=== PATIENT | female | born 1955 | race Caucasian/White ===

== ENCOUNTER 2020-07-18 10:34 | Day surgery (SDC) | payer BC ==
[2020-07-14 13:54] LABS: Basophils # (auto) 0.1 10 ^3/uL (0-0.2); Basophils % (auto) 0.7 % (0.0-2.0); Eosinophils # (auto) 0.1 10 ^3/uL (0-0.8); Eosinophils % (auto) 1.5 % (0.0-7.0); Hematocrit 41.3 % (36.0-46.0); Hemoglobin 13.6 g/dL (12.2-16.2); Lymphocytes # (auto) 2.3 10 ^3/uL (0.4-5.4); Lymphocytes % (auto) 29.8 % (10.0-50.0); Mean Corpuscular Hemoglobin 29.6 pg (28.0-32.0); Mean Corpuscular Hgb Conc. 32.9 g/dL (32.0-36.0); Mean Corpuscular Volume 89.9 fL (80.0-100.0); Monocytes # (auto) 0.6 10 ^3/uL (0-1.3); Monocytes % (auto) 7.5 % (0.0-12.0); Neutrophils # (auto) 4.6 10 ^3/uL (1.6-8.6); Neutrophils % (auto) 60.5 % (37.0-80.0); Nucleated Red Blood Cells % 0.2 %; Platelet Count (auto) 205 10^3/uL (140-450); Red Blood Cells 4.59 10^6/uL (4.0-5.20); Red Cell Distribution Width 13.1 % (11.8-14.3); Urine Bacteria NONE SEEN /hpf (None Seen); Urine Blood Negative /uL (Negative); Urine Mucus FEW (None Seen); Urine Specific Gravity 1.031 (1.001-1.035); Urine WBC 1 /hpf (0 - 5); White Blood Cell 7.6 10^3/uL (4.4-10.8)
[2020-07-14 14:08] LABS: INR 0.99 (0.9-1.15); Partial Thromboplastin Time 25.6 sec (23.0-31.2)
[2020-07-14 14:09] LABS: BUN/Creatinine Ratio 28.6; Calcium 9.1 mg/dL (8.5-10.1); Potassium 3.5 mmol/L (3.5-5.1)
[2020-07-14 14:12] LABS: Bilirubin, Total 0.4 mg/dL (0.2-1.0); Total Protein 7.2 g/dL (6.4-8.2)
[~2020-07-18] VITALS: Ht 152.4 cm; Wt 71.7 kg
[~2020-07-18 10:34] MED LIST: CHOL500040 PO; GABA300C10 PO; GLIP5TAB12 PO; INSLANTI SC; LEVO50TA7 PO; LISI-648 PO; METF-372 PO; NAPR220C PO; OMEP20TA PO; PARO10TA93 PO; SECU1INJ4 SC
[2020-07-18] MEDS ORDERED: PROPOFOL 10 MG/ML 20 ML IV ONE (11:06)
[2020-07-18] MEDS ORDERED: MIDAZOLAM HCL 1MG/1ML-2 ML VIAL ONE (11:06)
[2020-07-18] MEDS ORDERED: SODIUM CHLORIDE LOCK 10 ML ONE (11:06)
[2020-07-18] MEDS ORDERED: ONDANSETRON HCL 4 MG/2 ML VIAL ONE (11:06)
[2020-07-18] MEDS ORDERED: fentaNYL CITRATE 100 MCG/2 ML VL ONE (11:06)
[2020-07-18] MEDS ORDERED: METOCLOPRAMIDE HCL 5MG/ml INJ 2ml VIAL IV PRN (11:30)
[2020-07-18] MEDS ORDERED: HYDROmorphone HCL 2 MG/ML VL IV PRN (11:30)
[2020-07-18] MEDS ORDERED: fentaNYL CITRATE 100 MCG/2 ML VL IV PRN (11:30)
[2020-07-18] MEDS ORDERED: MORPHINE SULFATE 4 MG/ML SYR/VIAL IV PRN (11:30)
[2020-07-18] MEDS ORDERED: ACCU-CHEK COMFORT CURVE STRIP VI ONE (11:30)
[2020-07-18 13:03] VITALS: BP 133/87
== END 2020-07-18 13:52 | disposition home or self-care (01) ==
LOC: GI 10:34
PROVIDERS: ATTEND Internal Medicine Gastroenterology
DX: Z12.11 Encounter for screening for malignant neoplasm of colon (principal); K63.89 Other specified diseases of intestine; F32.9 Major depressive disorder, single episode, unspecified; F41.9 Anxiety disorder, unspecified; E66.9 Obesity, unspecified; E03.9 Hypothyroidism, unspecified; E11.40 Type 2 diabetes mellitus with diabetic neuropathy, unspecified; I10 Essential (primary) hypertension; Z90.89 Acquired absence of other organs; Z68.30 Body mass index [BMI] 30.0-30.9, adult; Z20.828 Contact with and (suspected) exposure to other viral communicable diseases; Z98.890 Other specified postprocedural states
CPT/HCPCS: 36415; 45378; 80053; 81001; 82962; 85025; 85610; 85730; J2250; J2405; J2704; J3010; U0003; 99152; 99153

== ENCOUNTER → 2023-09-13 | Outpatient (CLI) | payer BC ==
[~2023-09-13] MED LIST changes: +GABA-1250 PO; -GABA300C10 PO; -LISI-648 PO; +LISI10TA34 PO
[2023-09-13 07:56] LABS: Basophils # (auto) 0 10 ^3/uL (0-0.2); Basophils % (auto) 0.5 % (0.0-2.0); Eosinophils # (auto) 0.1 10 ^3/uL (0-0.8); Eosinophils % (auto) 1.2 % (0.0-7.0); Hematocrit 40.7 % (36.0-46.0); Hemoglobin 13.5 g/dL (12.2-16.2); Lymphocytes # (auto) 2.1 10 ^3/uL (0.4-5.4); Lymphocytes % (auto) 33.8 % (10.0-50.0); Mean Corpuscular Hemoglobin 30.4 pg (28.0-32.0); Mean Corpuscular Hgb Conc. 33.2 g/dL (32.0-36.0); Mean Corpuscular Volume 91.5 fL (80.0-100.0); Monocytes # (auto) 0.6 10 ^3/uL (0-1.3); Monocytes % (auto) 9.8 % (0.0-12.0); Neutrophils # (auto) 3.4 10 ^3/uL (1.6-8.6); Neutrophils % (auto) 54.7 % (37.0-80.0); Nucleated Red Blood Cells % 0.1 %; Red Blood Cells 4.45 10^6/uL (4.0-5.20); Red Cell Distribution Width 12.8 % (11.8-14.3); White Blood Cell 6.2 10^3/uL (4.4-10.8)
[2023-09-13 08:32] LABS: Erythrocyte Sedimentation Rate 8 mm/hr (0-20)
[2023-09-13 08:33] LABS: Alanine Aminotransferase 30 U/L (7-40); Albumin 4.3 g/dL (3.2-4.8); Alkaline Phosphatase 72 U/L (46-116); Anion Gap 4 (5-15); Aspartate Aminotransferase 22 U/L (13-40); BUN/Creatinine Ratio 29.3 (10.0-20.0); Blood Urea Nitrogen 22 mg/dL (9-23); Calcium 9.6 mg/dL (8.5-10.1); Carbon Dioxide 31 mmol/L (20-30); Chloride 106 mmol/L (98-107); Glucose 121 mg/dL (74-106); Potassium 4.5 mmol/L (3.5-5.1); Sodium 141 mmol/L (136-145)
[2023-09-13 08:34] LABS: Bilirubin, Total 0.5 mg/dL (0.2-1.0); Total Protein 6.6 g/dL (5.7-8.2)
== END | disposition home or self-care (01) ==
LOC: LAB 07:41
PROVIDERS: ATTEND Internal Medicine
DX: E11.9 Type 2 diabetes mellitus without complications (principal); M12.80 Other specific arthropathies, not elsewhere classified, unspecified site
CPT/HCPCS: 36415; 80053; 83036; 85025; 85652

== ENCOUNTER → 2023-12-26 | Outpatient (CLI) | payer BC ==
[2023-12-26 10:00] LABS: Basophils # (auto) 0.1 10 ^3/uL (0-0.2); Basophils % (auto) 0.9 % (0.0-2.0); Eosinophils # (auto) 0.9 10 ^3/uL (0-0.8); Eosinophils % (auto) 10.9 % (0.0-7.0); Hemoglobin 13.2 g/dL (12.2-16.2); Lymphocytes # (auto) 2.1 10 ^3/uL (0.4-5.4); Lymphocytes % (auto) 25.2 % (10.0-50.0); Mean Corpuscular Hemoglobin 30.1 pg (28.0-32.0); Mean Corpuscular Hgb Conc. 33.1 g/dL (32.0-36.0); Mean Corpuscular Volume 90.8 fL (80.0-100.0); Monocytes # (auto) 0.6 10 ^3/uL (0-1.3); Monocytes % (auto) 7.5 % (0.0-12.0); Neutrophils # (auto) 4.7 10 ^3/uL (1.6-8.6); Neutrophils % (auto) 55.5 % (37.0-80.0); Red Cell Distribution Width 13.8 % (11.8-14.3); White Blood Cell 8.4 10^3/uL (4.4-10.8)
[2023-12-26 10:14] LABS: Urine Bacteria NONE SEEN /hpf (None Seen); Urine Blood Negative /uL (Negative); Urine Clarity Clear (Clear); Urine Color Yellow (Yellow); Urine Mucus FEW (None Seen); Urine Protein, UAD 1+ (Negative); Urine Specific Gravity 1.029 (1.001-1.035); Urine Urobilinogen Normal (Negative); Urine WBC 2 /hpf (0 - 5); Urine pH 5.5 (5.0-8.0)
[2023-12-26 10:25] LABS: Alanine Aminotransferase 29 U/L (7-40); Aspartate Aminotransferase 27 U/L (13-40); Cholesterol 195 mg/dL (< 200); Creatine Kinase IFCC 156 U/L (34-145); HDL Cholesterol 45 mg/dL (40-59); LDL Cholesterol 90 mg/dL (< 100); Triglycerides 297 mg/dL (< 150)
== END | disposition home or self-care (01) ==
LOC: LAB 09:39
PROVIDERS: ATTEND Internal Medicine
DX: E11.9 Type 2 diabetes mellitus without complications (principal); E03.9 Hypothyroidism, unspecified; E78.5 Hyperlipidemia, unspecified
CPT/HCPCS: 36415; 80061; 81001; 82550; 83036; 84439; 84450; 84460; 85025

== ENCOUNTER → 2024-04-10 | Outpatient (CLI) | payer BC ==
[~2024-04-10] MED LIST changes: -GLIP5TAB12 PO; +GLIP5TAB21 PO
[2024-04-10 12:00] LABS: Basophils # (auto) 0 10 ^3/uL (0-0.2); Basophils % (auto) 0.5 % (0.0-2.0); Eosinophils # (auto) 0.1 10 ^3/uL (0-0.8); Hematocrit 39.1 % (36.0-46.0); Hemoglobin 13.5 g/dL (12.2-16.2); Lymphocytes # (auto) 2.4 10 ^3/uL (0.4-5.4); Lymphocytes % (auto) 34.2 % (10.0-50.0); Mean Corpuscular Hemoglobin 31.4 pg (28.0-32.0); Mean Corpuscular Hgb Conc. 34.4 g/dL (32.0-36.0); Mean Corpuscular Volume 91.4 fL (80.0-100.0); Monocytes # (auto) 0.6 10 ^3/uL (0-1.3); Monocytes % (auto) 8.8 % (0.0-12.0); Neutrophils # (auto) 3.9 10 ^3/uL (1.6-8.6); Neutrophils % (auto) 55.5 % (37.0-80.0); Red Blood Cells 4.28 10^6/uL (4.0-5.20); Red Cell Distribution Width 12.9 % (11.8-14.3)
[2024-04-10 12:15] LABS: Alanine Aminotransferase 28 U/L (7-40); Albumin 4.4 g/dL (3.2-4.8); Alkaline Phosphatase 97 U/L (46-116); Anion Gap 5 (5-15); Aspartate Aminotransferase 20 U/L (13-40); BUN/Creatinine Ratio 33.3 (10.0-20.0); Bilirubin, Total 0.5 mg/dL (0.2-1.0); Blood Urea Nitrogen 23 mg/dL (9-23); CRP High Sensitivity 0.07 mg/dL (<1.0); Calcium 9.8 mg/dL (8.5-10.1); Carbon Dioxide 28 mmol/L (20-30); Chloride 107 mmol/L (98-107); Glucose 111 mg/dL (74-106); Potassium 4.1 mmol/L (3.5-5.1); Sodium 140 mmol/L (136-145); Total Protein 6.7 g/dL (5.7-8.2)
[2024-04-10 12:52] LABS: Erythrocyte Sedimentation Rate 9 mm/hr (0-20)
== END | disposition home or self-care (01) ==
LOC: LAB 11:23
PROVIDERS: ATTEND Internal Medicine
DX: I10 Essential (primary) hypertension (principal); E11.9 Type 2 diabetes mellitus without complications
CPT/HCPCS: 36415; 80053; 83036; 85025; 85652; 86141

== ENCOUNTER → 2024-09-19 | Outpatient (CLI) | payer BC ==
[2024-09-19 09:03] LABS: Urine Bacteria None Seen /hpf (None Seen)
[2024-09-19 09:21] LABS: Basophils # (auto) 0 10 ^3/uL (0-0.2); Basophils % (auto) 0.4 % (0.0-2.0); Eosinophils # (auto) 0.1 10 ^3/uL (0-0.8); Eosinophils % (auto) 0.7 % (0.0-7.0); Hematocrit 40.7 % (36.0-46.0); Hemoglobin 13.7 g/dL (12.2-16.2); Lymphocytes # (auto) 2.1 10 ^3/uL (0.4-5.4); Lymphocytes % (auto) 28.5 % (10.0-50.0); Mean Corpuscular Hemoglobin 30.3 pg (28.0-32.0); Mean Corpuscular Hgb Conc. 33.7 g/dL (32.0-36.0); Mean Corpuscular Volume 89.8 fL (80.0-100.0); Monocytes # (auto) 0.7 10 ^3/uL (0-1.3); Neutrophils # (auto) 4.5 10 ^3/uL (1.6-8.6); Neutrophils % (auto) 61.4 % (37.0-80.0); Nucleated Red Blood Cells % 0.1 %; Platelet Count (auto) 221 10^3/uL (140-450); Red Blood Cells 4.54 10^6/uL (4.0-5.20); Red Cell Distribution Width 13.3 % (11.8-14.3); White Blood Cell 7.3 10^3/uL (4.4-10.8)
[2024-09-19 09:40] LABS: Urine Blood Negative /uL (Negative); Urine Clarity Clear (Clear); Urine Color Yellow (Yellow); Urine Mucus FEW (None Seen); Urine Protein, UAD TRACE (Negative); Urine Specific Gravity 1.023 (1.001-1.035); Urine Urobilinogen Normal (Negative); Urine WBC 11 /hpf (0 - 5); Urine pH 5.5 (5.0-9.0)
[2024-09-19 09:53] LABS: Creatinine, Urine 102.17 mg/dL (30.0-125.0)
[2024-09-19 09:54] LABS: Alanine Aminotransferase 24 U/L (7-40); Albumin 4.3 g/dL (3.2-4.8); Alkaline Phosphatase 98 U/L (46-116); Anion Gap 8 (5-15); Aspartate Aminotransferase 15 U/L (13-40); BUN/Creatinine Ratio 28.6 (10.0-20.0); Blood Urea Nitrogen 20 mg/dL (9-23); Calcium 10.4 mg/dL (8.7-10.4); Carbon Dioxide 28 mmol/L (20-31); Chloride 107 mmol/L (98-107); Cholesterol 215 mg/dL (< 200); Glucose 76 mg/dL (74-106); HDL Cholesterol 45 mg/dL (40-59); LDL Cholesterol 104 mg/dL (< 100); Potassium 4.4 mmol/L (3.5-5.1); Sodium 143 mmol/L (136-145); Triglycerides 283 mg/dL (< 150)
[2024-09-19 09:55] LABS: Bilirubin, Total 0.4 mg/dL (0.2-1.0); Erythrocyte Sedimentation Rate 7 mm/hr (0-20); Total Protein 6.7 g/dL (5.7-8.2)
[2024-09-19 11:07] LABS: Free T4 (Free Thyroxine) 1.41 ng/dL (0.89-1.76)
== END | disposition home or self-care (01) ==
LOC: LAB 08:45
PROVIDERS: ATTEND Internal Medicine
DX: I10 Essential (primary) hypertension (principal); E11.9 Type 2 diabetes mellitus without complications; Z79.899 Other long term (current) drug therapy
CPT/HCPCS: 36415; 80053; 80061; 81001; 82043; 82306; 82570; 82607; 83036; 84439; 84443; 85025; 85652

== ENCOUNTER → 2025-08-02 | Outpatient (CLI) | payer BC ==
[2025-08-02 10:05] LABS: Hematocrit 38.3 % (36.0-46.0); Hemoglobin 13.2 g/dL (12.2-16.2); Mean Corpuscular Hemoglobin 30.5 pg (28.0-32.0); Mean Corpuscular Volume 88.2 fL (80.0-100.0); Nucleated Red Blood Cells % 0.1 %
[2025-08-02 10:08] LABS: Urine Protein, UAD 1+ (Negative)
[2025-08-02 10:30] LABS: Alanine Aminotransferase 25 U/L (7-40); Alkaline Phosphatase 85 U/L (46-116); Anion Gap 10 (5-15); BUN/Creatinine Ratio 27.6 (10.0-20.0); Blood Urea Nitrogen 21 mg/dL (9-23); Calcium 9.5 mg/dL (8.7-10.4); Carbon Dioxide 28 mmol/L (20-31); Chloride 103 mmol/L (98-107); Potassium 4.6 mmol/L (3.5-5.1); Sodium 141 mmol/L (136-145); Total Protein 6.9 g/dL (5.7-8.2)
[2025-08-02 10:31] LABS: Albumin 4.3 g/dL (3.2-4.8)
[2025-08-02 10:32] LABS: Bilirubin, Total 0.6 mg/dL (0.2-1.0)
[2025-08-02 10:37] LABS: Microalb/Creat Ratio, Urine 11.0
[2025-08-02 10:43] LABS: Cholesterol 223 mg/dL (< 200); Glucose 138 mg/dL (74-106); HDL Cholesterol 39 mg/dL (40-59); Triglycerides 365 mg/dL (< 150)
== END | disposition home or self-care (01) ==
LOC: LAB 09:30
PROVIDERS: ATTEND Internal Medicine
DX: I10 Essential (primary) hypertension (principal); E11.9 Type 2 diabetes mellitus without complications
CPT/HCPCS: 36415; 80053; 80061; 81001; 82043; 82570; 82607; 84443; 85025; 85652

== ENCOUNTER 2025-08-19 07:28 | Inpatient (IN) | payer BC ==
[2025-08-15 12:57] LABS: Hematocrit 39.4 % (36.0-46.0); Hemoglobin 13.3 g/dL (12.2-16.2); Mean Corpuscular Hemoglobin 30.0 pg (28.0-32.0); Mean Corpuscular Volume 88.5 fL (80.0-100.0); Nucleated Red Blood Cells % 0.0 %
[2025-08-15 13:03] LABS: Urine Protein, UAD Negative (Negative)
[2025-08-15 13:07] LABS: INR 1.02 (0.9-1.15); Partial Thromboplastin Time 26.8 SEC (24.5-34.5); Prothrombin Time 10.8 sec (9.3-11.8)
[2025-08-15 13:21] LABS: Alanine Aminotransferase 22 U/L (7-40); Albumin 4.6 g/dL (3.2-4.8); Alkaline Phosphatase 85 U/L (46-116); Anion Gap 11 (5-15); BUN/Creatinine Ratio 23.9 (10.0-20.0); Bilirubin, Total 0.6 mg/dL (0.2-1.0); Blood Urea Nitrogen 16 mg/dL (9-23); Calcium 9.7 mg/dL (8.7-10.4); Carbon Dioxide 27 mmol/L (20-31); Chloride 105 mmol/L (98-107); Potassium 3.7 mmol/L (3.5-5.1); Sodium 143 mmol/L (136-145); Total Protein 7.1 g/dL (5.7-8.2)
[2025-08-15 14:54] LABS: Glucose 48 mg/dL (74-106)
[~2025-08-19] VITALS: Ht 153 cm; Wt 68.8 kg
[2025-08-19] VITALS (15 sets, daily range): BP systolic 91–120; BP diastolic 40–83; PULSE 65–80; RESP 11–20; TEMP 98.3; O2SAT 94–99
[~2025-08-19 07:28] MED LIST changes: +ACETAMINOPHEN IV 1000 MG/100ML (10MG/ML) IV PRN; -CHOL500040 PO; +FENO145T27 OR; +GABA-339 PO; +MELO15TA29 PO; -NAPR220C PO; -OMEP20TA PO; -SECU1INJ4 SC; +TRAM-626 PO
[2025-08-19] MEDS ORDERED: KETAMINE 50mg/ML 1ml syringe ONE (08:20)
[2025-08-19] MEDS ORDERED: fentaNYL CITRATE 100 MCG/2 ML VL ONE (08:20)
[2025-08-19] MEDS ORDERED: BUPIVACAINE/DEXTROSE MPF 0.75% 2 ML AMP IT ONE (08:21)
[2025-08-19] MEDS ORDERED: MIDAZOLAM HCL 2MG/2ML 2ml VIAL (1mg/ml) ONE (08:21)
[2025-08-19] MEDS ORDERED: SODIUM CHLORIDE LOCK 10 ML ONE (08:21)
[2025-08-19] MEDS ORDERED: ONDANSETRON HCL 4 MG/2 ML VIAL ONE (08:21)
[2025-08-19] MEDS ORDERED: LIDOCAINE 1% INJ PF 5ML AMP ONE (08:21)
[2025-08-19] MEDS ORDERED: PROPOFOL 10 MG/ML 20 ML IV ONE (08:21)
[2025-08-19] MEDS ORDERED: MORPHINE SULFATE INJ 2 MG/ml SYRG IV PRN ×2 (08:30→10:45)
[2025-08-19] MEDS ORDERED: DEXTROSE (50%) 50ML SYRG IV PRN ×2 (08:30→12:15)
[2025-08-19] MEDS ORDERED: NITROGLYCERIN 0.4 MG SL TAB SL PRN (08:30)
[2025-08-19] MEDS: ceFAZolin 2 GM/D5W50ml 50 ML IV ONE (09:15)
[2025-08-19] MEDS: TRANEXAMIC ACID 20 ML ONE (09:15)
[2025-08-19] MEDS ORDERED: HYDROMORPHONE HCL 1 MG/ML INJ IV PRN ×3 (09:30→11:00)
[2025-08-19] MEDS: VANCOMYCIN HCL 1000 MG VL ONE (09:53)
[2025-08-19] MEDS: BUPIVACAINE 0.25% INJ 50ML VIAL ONE ×2 (09:53→15:07)
[2025-08-19] MEDS: MORPHINE SULF PF 5 MG/10 ML VIAL ONE (09:53)
[2025-08-19] MEDS: KETOROLAC TROMETH 30 MG/ML 1ML VIAL ONE (09:53)
[2025-08-19] MEDS ORDERED: LISINOPRIL 5 MG TAB PO SCH (10:00)
--- NOTE | 2025-08-19 10:41 | DVHOP2 ---
Discharge Orders Discharge Orders DISCHARGE WHEN CRITERIA MET DISCHARGE WHEN CRITERIA MET. Operative Rep- Outpatient Operative Report PRE-OP DIAGNOSIS: Right knee osteoarthritis POST-OP DIAGNOSIS: Same [place] protocol followed: Yes ESTIMATED BLOOD LOSS: 50 PROCEDURE: Right total knee arthroplasty Computer navigation right total knee arthroplasty Application of negative pressure wound VAC right total knee arthroplasty SURGEON/HEARSE DRIVER: Jose Luis Vines M.D. ANESTHESIA: Spinal ANESTHESIOLOGIST: INFORMED CONSENT: Informed Consent: Discussed all inherent risks, complications, and alternatives treatments with the patient. Patient has agreed to proceed with the procedure. I have reviewed all pre-operative assessments including Labs, EKGs, and radiographic images that has been performed. Patient is an appropriate candidate for the outpatient surgical center procedure. The patient is seen in the preoperative holding of the right lower extremity was marked the patient is educated on the risks of the having a total knee arthroplasty the patient is educated on the risks and benefits of surgical and nonsurgical treatment of the having a total knee arthroplasty all of the outcomes in all the complications associated with a total knee arthroplasty educated to the patient. The patient is seen in the preoperative holding of the right lower extremity was marked the patient was brought to operative suite general anesthesia was then induced time-out was performed to hospital protocol the right lower extremity was then marked the patient was brought to operative suite the patient was given Ancef and TXA for bleeding prophylaxis the right lower extremity was then prepped and draped in the standard fashion Ancef was given for infection prophylaxis TXA was given for bleeding prophylaxis the right lower extremity was marked and the incision was made through skin with a skin surface tissue down of the VMO quad junction of the medial parapatellar arthrotomy was then irrigated a small medial release it was then created then using computer navigation after the ACL was then transected along with the anterior horn of the medial and lateral meniscus attention was then turned to the proximal tibia with a a 2 degree slope based on the deep dish at this time point based on these parameters the close down the flexion gap on the slope was measured 2 once it was then cut on 10 mm was cut off the high side once it was then done using computer navigation with flexion extension internal external rotation on with a 3 degree flexion cut on the distal femoral cut was then completed once it was then completed the femur was then sized to a size 4 legion femoral component 4 1 cutting block was then used the posterior osteophytes were carefully removed of the medial and lateral meniscus were carefully removed the ACL was removed the PCL was left inside with a pie crusting of the PCL once I was then done attention was then turned to the a size 3 tibial base plate punched and killed the size 4 femoral component patellar neurectomy was then completed once it was then done the knee was irrigated copiously with saline the size 3 tibial base plate a size 4 femoral component was then placed along with a 9 mm deep dish poly once I was then done the knee was irrigated copiously with saline and then closed the irrigated copiously with saline with local anesthetic followed by 1. Ethibond followed by a 1. Stratafix followed and 90 of flexion prevent patella baja followed by 0 Vicryl followed by 2-0 Monocryl followed by jamshid. The p atient will be weight-bearing as tolerated on the right lower extremity and then application of negative pressure wound VAC. The patient will follow up in 2 weeks' time in the clinic. JOSE LUIS MEJIA MD Aug 19, 2025 10:41
[2025-08-19] MEDS ORDERED: diphenhydrAMINE HCL 50 MG/1 ML VL IV PRN (10:45)
[2025-08-19] MEDS ORDERED: NALOXONE HCL 0.4 MG/ML VIAL IV PRN (10:45)
[2025-08-19] MEDS: ACCU-CHEK COMFORT CURVE STRIP VI ONE (10:45)
[2025-08-19] MEDS ORDERED: MORPHINE SULFATE 4 MG/ML SYR/VIAL IV PRN (10:45)
[2025-08-19] MEDS ORDERED: METOCLOPRAMIDE HCL 5MG/ml INJ 2ml VIAL IV PRN (10:45)
[2025-08-19] MEDS ORDERED: ACCU-CHEK COMFORT CURVE STRIP VI SCH (11:30)
[2025-08-19] MEDS ORDERED: InsuLIN REG 1unit/0.01ml Soln (100units/ml) SC SCH ×2 (11:30→22:00)
[2025-08-19] MEDS ORDERED: LIDOCAINE W/ EPINEPHRINE 1% 20ML VIAL ONE (11:52)
--- NOTE | 2025-08-19 12:09 | DVH ---
EXAM: XY R KNEE 3V XRAY CLINICAL INDICATION: S/P SURGERY TECHNIQUE: XY R KNEE 3V XRAY Comparison: XY L KNEE 3V XRAY on DOS: 03/27/25, XY R KNEE 3V XRAY on DOS: 03/27/25, XY L KNEE 2V XRAY o n DOS: 12/26/23, XY R KNEE 2V XRAY on DOS: 12/26/23, L KNEE 3V XRAY on DOS: 12/07/22 FINDINGS/IMPRESSION: Right total knee arthroplasty. Surgical skin jamshid are present
--- NOTE | 2025-08-19 12:19 | DVHINCON2 ---
Date Seen: Aug 19, [address] MEJIA Allergies: Coded Allergies: NO KNOWN ALLERGIES (Unverified , 07/14/20) Home Meds Reported Medications Tramadol HCl (Tramadol HCl) 50 Mg Tab, 50 MG PO BID, TAB 08/16/25 Meloxicam (Meloxicam) 15 Mg Tab, 15 MG PO DAILY, TAB 08/16/25 Fenofibrate (FENOFIBRATE) 145 Mg Tab, 145 MG OR DAILY, TAB 08/16/25 Gabapentin (Gabapentin) 600 Mg Tab, 600 MG PO TID, TAB 08/16/25 Insulin Glargine (Lantus) 100 Unit/Ml Inj, 24 UNIT SC HS, INJ 07/14/20 Levothyroxine Sodium (Levothyroxine Sodium) 50 Mcg Tab, 75 MCG PO QAM for 30 Day s, MCG 07/14/20 Lisinopril (Lisinopril) 10 Mg Tab, 10 MG PO BID for 30 Days, MG 07/14/20 Glipizide (Glipizide) 5 Mg Tab, 10 MG PO BID for 30 Days, MG 07/14/20 Metformin Hydrochloride (Metformin Hcl) 1,000 Mg Tab, 1 TAB PO BID, #60 TAB 5 Refills 07/14/20 Paroxetine Hydrochloride (Paroxetine Hydrochloride) 10 Mg Tab, 10 MG PO DAILY, TAB 07/14/20 Gabapentin (Gabapentin) 300 Mg Cap, 2 TAB PO QPM for 30 Days, MG 07/14/20 Discontinued Reported Medications Secukinumab (Cosentyx) 150 Mg/Ml Inj, 150 MG SC MONTHLY, INJ 07/14/20 Naproxen Sodium (Aleve) 220 Mg Cap, 220 MG PO BID, CAP 07/14/20 Omeprazole (Gnp Omeprazole) 20 Mg Tab, 1 TAB PO DAILY, #90 TAB 1 Refill 07/14/20 Gabapentin (Gabapentin) 300 Mg Cap, 1 TAB PO QAM for 30 Days, MG 07/14/20 Current Medications Current Medications Medications (Trade) Dose Ordered Sig/Kaykay Route PRN Reason Start Time Stop Time Status Last Admin Acetaminophen (Ofirmev) 1,000 mg [id number] PRN IV PAIN SCALE 1-3 OR TEMP>100.4 08/19/25 06:45 08/19/25 06:46 DC Gabapentin (Neurontin Capsule) 600 mg QPM PO 08/19/25 18:00 Future Hold Levothyroxine Sodium (Synthroid Tablet) 75 mcg QAM@0600 PO 08/19/25 09:19 Patient Own Medication 145 mg DAILY PO 08/19/25 10:00 Gabapentin (Neurontin Capsule) 600 mg TID PO 08/19/25 14:00 Future Hold Lisinopril (Zestril Tablet) 10 mg BID PO 08/19/25 10:00 Metformin HCl (Glucophage) 1,000 mg BIDWM PO 08/19/25 18:00 Paroxetine HCl (Paxil Tablet) 10 mg DAILY PO 08/19/25 10:00 Lactated Ringer's 1,000 ml @ 100 mls/hr Q10H IV 08/19/25 08:30 Sodium Chloride (Saline Lock Ns) 10 ml Q8HR IV 08/19/25 14:00 Cefazolin Sodium 50 ml @ 50 mls/hr Q6H IV 08/19/25 08:30 08/19/25 21:29 Acetaminophen (Tylenol Tablet) 650 mg Q6HP PRN PO MILD PAIN OR TEMP >101 08/19/25 08:30 Acetaminophen/ Hydrocodone Bitart (Guthrie 5/325MG Tab) 1 tab Q4HP PRN PO MODERATE PAIN (4-6 PAIN SCALE) 08/19/25 08:30 Hydromorphone HCl (Dilaudid Injection) 1 mg Q2HP PRN IV SEVERE PAIN (7-10 PAIN SCALE) 08/19/25 09:30 Ondansetron HCl (Zofran) 4 mg Q6HP PRN IV NAUSEA / VOMITING 08/19/25 08:30 Docusate Sodium (Colace Capsule) 100 mg Q12HR PO 08/19/25 10:00 Nitroglycerin (Ntrostat Sublingual) 0.4 mg Q5MINP PRN SL FOR CHEST PAIN 08/19/25 08:30 Morphine Sulfate 2 mg Q30M PRN IV FOR CHEST PAIN 08/19/25 08:30 Cefepime HCl 50 ml @ 12.5 mls/hr DAILY IV 08/20/25 10:00 Aspirin (Ecotrin Enteric Coated Tablet) 81 mg BID PO 08/20/25 10:00 Diagnostic Test (Pha) (Accu-Chek Comfort Curve T) 1 strip ACHS 08/19/25 11:30 Insulin Human Regular (InsuLIN R) HS SC 08/19/25 22:00 Insulin Human Regular (InsuLIN R) AC SC 08/19/25 11:30 Dextrose 50 ml UD PRN IV Blood Sugar LESS THAN 60 08/19/25 08:30 Metoclopramide HCl (Reglan Injection) 10 mg ONCE PRN IV NAUSEA / VOMITING 08/19/25 10:45 08/19/25 10:56 DC Hydromorphone HCl (Dilaudid Injection) 0.5 mg Q10M PRN IV SEVERE PAIN (7-10 PAIN SCALE) 08/19/25 11:00 08/19/25 11:41 DC Morphine Sulfate 2 mg Q4H PRN IV BREAKTHRU PAIN SCALE 7-10 08/19/25 10:45 08/19/25 14:46 Hydromorphone HCl (Dilaudid Injection) 0.25 mg Q10M PRN IV MODERATE PAIN (4-6 PAIN SCALE) 08/19/25 11:00 08/19/25 11:31 DC Morphine Sulfate 1 mg Q30M PRN IV SEVERE PAIN (7-10 PAIN SCALE) 08/19/25 10:45 08/19/25 12:46 Diphenhydramine HCl (Benadryl Injection) 25 mg Q4HP PRN IV FOR ITCHING 08/19/25 10:45 Naloxone HCl (Narcan) 0.2 mg Q5M PRN IV For respirations < than 10/min 08/19/25 10:45 08/19/25 10:56 DC Vital Signs Vital Signs Date Time Temp Pulse Resp B/P (MAP) Pulse Ox O2 Delivery O2 Flow Rate FiO2 08/19/25 11:17 Mask 6.0 99 08/19/25 07:55 97.5 71 18 107/56 (73) 97 97.5 Labs/Diagnostic Data Labs Test 08/19/25 11:51 08/15/25 12:40 Range/Units POC Glucose 78 70-106 mg/dl White Blood Count 8.8 4.4-10.8 10^3/uL Red Blood Count 4.45 4.0-5.20 10^6/uL Hemoglobin 13.3 12.2-16.2 g/dL Hematocrit 39.4 36.0-46.0 % Mean Corpuscular Volume 88.5 80.0-100.0 fL Mean Corpuscular Hemoglobin 30.0 28.0-32.0 pg Mean Corpuscular Hemoglobin Concent 33.9 32.0-36.0 g/dL Red Cell Distribution Width 12.8 11.8-14.3 % Platelet Count 216 140-450 10^3/uL Mean Platelet Volume 8.9 6.9-10.8 fL Neutrophils (%) (Auto) 43.0 37.0-80.0 % Lymphocytes (%) (Auto) 47.3 10.0-50.0 % Monocytes (%) (Auto) 7.0 0.0-12.0 % Eosinophils (%) (Auto) 2.0 0.0-7.0 % Basophils (%) (Auto) 0.7 0.0-2.0 % Neutrophils # (Auto) 3.8 1.6-8.6 10 ^3/uL Lymphocytes # (Auto) 4.2 0.4-5.4 10 ^3/uL Monocytes # (Auto) 0.6 0-1.3 10 ^3/uL Eosinophils # (Auto) 0.2 0-0.8 10 ^3/uL Basophils # (Auto) 0.1 0-0.2 10 ^3/uL Nucleated Red Blood Cells 0.0 % Prothrombin Time 10.8 9.3-11.8 sec Prothrombin Time INR 1.02 0.9-1.15 Activated Partial Thromboplast Time 26.8 24.5-34.5 SEC Urine Color Light-yellow Yellow Urine Clarity Clear Clear Urine pH 5.0 5.0-9.0 Urine Specific [place] 1.013 1.001-1.035 Urine Protein Negative Negative Urine Ketones Negative Negative Urine Blood Negative Negative /uL Urine Nitrite Negative Negative Urine Bilirubin Negative Negative Urine Urobilinogen Normal Negative mg/dL Urine Leukocyte Esterase 1+ Negative /uL Urine RBC 3 0 - 4 /hpf Urine Microscopic WBC 4 0-5 /HPF Urine Squamous Epithelial Cells Few <5 /hpf Urine Bacteria None seen None Seen /hpf Urine Glucose Normal Normal mg/dL Sodium Level 143 136-145 mmol/L Potassium Level 3.7 3.5-5.1 mmol/L Chloride Level 105 98-107 mmol/L Carbon Dioxide Level 27 20-31 mmol/L Anion Gap 11 5-15 Blood Urea Nitrogen 16 9-23 mg/dL Creatinine 0.67 0.550-1.02 mg/dL Glomerular Filtration Rate Calc 93 >90 mL/min BUN/Creatinine Ratio 23.9 H 10.0-20.0 Serum Glucose 48 *L 74-106 mg/dL Calcium Level 9.7 8.7-10.4 mg/dL Total Bilirubin 0.6 0.2-1.0 mg/dL Aspartate Amino Transferase (AST) 25 13-40 U/L Alanine Aminotransferase (ALT) 22 7-40 U/L Alkaline Phosphatase 85 46-116 U/L Total Protein 7.1 5.7-8.2 g/dL Albumin 4.6 3.2-4.8 g/dL Assessment SEE DICTATED NOTE Plan discussed with: Patient Date of Service: Aug 19, 2025 Billing Provider: ALESIA MCDERMOTT MD Common Visit Codes: [id number] INP/OBS CARE (HIGH) Secondary Visit Codes: [id number] CARE PLAN 30 MINUTES ALESIA MCDERMOTT MD Aug 19, 2025 12:18
--- NOTE | 2025-08-19 13:12 | DVHINCON2 ---
DATE OF CONSULTATION: 08/19/2025 INTERNAL MEDICINE CONSULT HISTORY OF PRESENT ILLNESS: The patient is a 69-year-old lady who was admitted after she underwent surgery on the right knee for DJD of the knee. The patient at this time denies any significant pain. No chest pain, no shortness of breath, no nausea or vomiting. REVIEW OF SYSTEMS: Review of the rest of the system is otherwise currently negative. PAST MEDICAL HISTORY: Significant for diabetes, hypertension, hypothyroidism, depression, hyperlipidemia, and neuropathy. MEDICATIONS: She takes fenofibrate, gabapentin, glipizide, Lantus, levothyroxine, lisinopril, metformin, Paxil, tramadol. ALLERGIES: No known drug allergies. SOCIAL HISTORY: No smoking or alcohol. FAMILY HISTORY: Negative. PHYSICAL EXAMINATION: GENERAL: The patient is awake, alert. VITAL SIGNS: Temperature of 97.5, pulse 71 per minute, blood pressure 107/56. SHEENT: Unremarkable. NECK: There is no JVD. No pedal edema. LUNGS: Equal bilaterally. No added sounds. CARDIOVASCULAR: S1 and S2 is regular, no murmurs. ABDOMEN: Soft. There is no organomegaly. NEUROLOGIC: Nonfocal. MUSCULOSKELETAL: The right knee is currently in a dressing. ASSESSMENT AND PLAN: * Diabetes mellitus for which she will be placed on sliding scale insulin. * Hypertension for which her blood pressure will be monitored. * Hypothyroidism. Her TSH will be checked. * Hyperlipidemia. * Neuropathy. * Depression. * Status post surgery on the right knee for degenerative joint disease of the knee for which she will be placed on pain medications and receive physical therapy. ADVANCED CARE PLANNING: The patient is a full code-Time spent was 17 minutes. MD RAMESH Senior/RONNELL TID: [id number] RECEIPT: [id number] [facility]
[2025-08-19] MEDS: SODIUM CHLOR 0.9% PF (SALINE LOCK) 10ML VIAL/SYR IV SCH (14:00)
[2025-08-19] MEDS ORDERED: GABAPENTIN 300 MG CAP PO SCH ×2 (14:00→18:00)
[2025-08-19] MEDS: CELECOXIB 100 MG CAP PO ONE (15:03)
[2025-08-19] MEDS: PREGABALIN CAPSULE 75 MG CAP PO ONE (15:04)
[2025-08-19] MEDS: LACTATED RINGER'S 1,000 ML IV SCH (15:04)
[2025-08-19] MEDS: TETRACAINE 1% INJ 2 ML VIAL IJ ONE (15:05)
[2025-08-19] MEDS: ceFAZolin 1GM/50ML 50 ML IV SCH ×2 (15:05→16:20)
[2025-08-19] MEDS: CEFEPIME 1GM/50ML 50 ML IV ONE (15:05)
[2025-08-19] MEDS: ceFAZolin 1GM/50ML 50 ML IV ONE (15:06)
[2025-08-19] MEDS: DOCUSATE SOD 100 MG CAP PO SCH (15:06)
[2025-08-19] MEDS: PARoxetine 20 MG TAB PO SCH ×2 (15:06→21:56)
[2025-08-19] MEDS: ROPIVACAINE 0.5% (5MG/ML) 20ML AMPULE IJ ONE (15:06)
[2025-08-19] MEDS: LEVOTHYROXINE SODIUM 25 MCG TAB PO SCH (15:08)
[2025-08-19] MEDS: KETOROLAC TROMETH 30 MG/ML 1ML VIAL IV ONE (15:08)
[2025-08-19] MEDS: ACCU-CHEK COMFORT CURVE STRIP VI SCH (16:59)
[2025-08-19] MEDS: InsuLIN REG 1unit/0.01ml Soln (100units/ml) SC SCH (17:00)
[2025-08-19] MEDS: ONDANSETRON HCL 4 MG/2 ML VIAL IV PRN (17:54)
[2025-08-20] VITALS (22 sets, daily range): BP systolic 95–178; BP diastolic 52–93; PULSE 71–105; RESP 16–19; TEMP 97.7–100.2; O2SAT 95–100
[2025-08-20 05:59] LABS: Hematocrit 31.3 % (36.0-46.0); Hemoglobin 10.6 g/dL (12.2-16.2); Mean Corpuscular Hemoglobin 29.9 pg (28.0-32.0); Mean Corpuscular Volume 88.6 fL (80.0-100.0); Nucleated Red Blood Cells % 0.1 %
[2025-08-20 06:24] LABS: Alanine Aminotransferase 20 U/L (7-40); Albumin 3.6 g/dL (3.2-4.8); Alkaline Phosphatase 62 U/L (46-116); Anion Gap 10 (5-15); BUN/Creatinine Ratio 28.8 (10.0-20.0); Bilirubin, Total 0.5 mg/dL (0.2-1.0); Calcium 8.8 mg/dL (8.7-10.4); Carbon Dioxide 27 mmol/L (20-31); Chloride 104 mmol/L (98-107); Potassium 4.2 mmol/L (3.5-5.1); Sodium 141 mmol/L (136-145); Total Protein 5.8 g/dL (5.7-8.2)
[2025-08-20 06:28] LABS: Blood Urea Nitrogen 23 mg/dL (9-23); Glucose 186 mg/dL (74-106)
[2025-08-20] MEDS: HYDROcodone-ACET 5/325MG TAB PO PRN (08:09)
--- NOTE | 2025-08-20 08:18 | DVHPN2 ---
Progress Note Date Seen: Aug 20, 2025 Medical Necessity Reason Pt with a Central, PICC or Fol: No Subjective Patient reports: No new complaints Objective vital signs Vital Sign Date Time Temp Pulse Resp B/P (MAP) Pulse Ox O2 Delivery O2 Flow Rate FiO2 08/20/25 06:50 76 18 96 08/20/25 05:00 97.7 109/61 (77) 97.7 08/19/25 20:00 Nasal Cannula* 2 28 Total Intake and Output 08/19/25 08/19/25 08/20/25 15:00 23:00 07:00 Intake Total 170 ml 300 ml Balance 170 ml 300 ml medications Current Medications Medications Dose Ordered Sig/Kaykay Route Start Time Stop Time Status Last Admin Dose Admin Gabapentin 600 mg QPM PO 08/19/25 18:00 Hold Levothyroxine Sodium 75 mcg QAM@0600 PO 08/19/25 09:19 08/20/25 06:12 75 MCG Gabapentin 600 mg TID PO 08/19/25 14:00 Hold Lactated Ringer's 1,000 ml @ 100 mls/hr Q10H IV 08/19/25 08:30 08/20/25 04:11 100 MLS/HR Sodium Chloride 10 ml Q8HR IV 08/19/25 14:00 08/20/25 06:12 10 ML Acetaminophen 650 mg Q6HP PRN PO 08/19/25 08:30 Acetaminophen/ Hydrocodone Bitart 1 tab Q4HP PRN PO 08/19/25 08:30 08/20/25 08:09 1 TAB Ondansetron HCl 4 mg Q6HP PRN IV 08/19/25 08:30 08/19/25 17:54 4 MG Docusate Sodium 100 mg Q12HR PO 08/19/25 10:00 Nitroglycerin 0.4 mg Q5MINP PRN SL 08/19/25 08:30 Morphine Sulfate 2 mg Q30M PRN IV 08/19/25 08:30 Cefepime HCl 50 ml @ 12.5 mls/hr DAILY IV 08/20/25 10:00 Aspirin 81 mg BID PO 08/20/25 10:00 Diphenhydramine HCl 25 mg Q4HP PRN IV 08/19/25 10:45 Hydromorphone HCl 1 mg Q3HP PRN IV 08/19/25 12:15 Diagnostic Test (Pha) 1 strip ACHS 08/19/25 17:00 08/20/25 06:12 1 STRIP Insulin Human Regular ACHS SC 08/19/25 17:00 08/20/25 06:19 3 UNITS Dextrose 50 ml UD PRN IV 08/19/25 12:15 Paroxetine HCl 10 mg HS PO 08/19/25 22:00 08/19/25 21:56 10 MG Examination: GENERAL:Normal, MSK:Abnormal laboratory and microbiology Laboratory Tests 08/20/25 05:20 Test 08/20/25 05:20 Range/Units Serum Glucose 186 H 74-106 mg/dL Problem List/Assessment/Plan Problem List/Assessment/Plan 69 year old female who is s/p right TKA POD 1 1. Pain control 2. DVT ppx 3. CPM as ordered 4. Physical therapy 5. prescriptions for pain, DVT ppx and abx ppx to be sent by [facility] to in house pharmacy as per patient request 6. aquacel to remain in place for 2 weeks Plan discussed with: Patient Date of Service: Aug 20, 2025 Billing Provider: EVANGELINA HARRISON MD Common Visit Codes: NOT BILLABLE LUDWIG ASHER NP Aug 20, 2025 08:18
[2025-08-20] MEDS: ASPirin-EC 81 mg tab PO SCH (08:40)
[2025-08-20] MEDS: CEFEPIME 1GM/50ML 50 ML IV SCH ×2 (08:40→22:06)
[2025-08-20] MEDS: HYDROMORPHONE HCL 1 MG/ML INJ IV PRN (10:41)
--- NOTE | 2025-08-20 10:52 | DVHPN2 ---
Progress Note Date Seen: Aug 20, 2025 Medical Necessity Reason Pt with a Central, PICC or Fol: No Subjective Patient reports: No new complaints Review of Systems: HEENT:Normal, CVS:Normal, RESPIRATORY:Normal, GI:Normal, :Normal, MSK:Normal, NEURO:Normal Objective vital signs Vital Sign Date Time Temp Pulse Resp B/P (MAP) Pulse Ox O2 Delivery O2 Flow Rate FiO2 08/20/25 10:41 79 18 124/71 08/20/25 08:00 Nasal Cannula* 1 24 08/20/25 06:50 96 08/20/25 05:00 97.7 97.7 Total Intake and Output 08/19/25 08/19/25 08/20/25 15:00 23:00 07:00 Intake Total 170 ml 300 ml Balance 170 ml 300 ml medications Current Medications Medications Dose Ordered Sig/Kaykay Route Start Time Stop Time Status Last Admin Dose Admin Gabapentin 600 mg QPM PO 08/19/25 18:00 Hold Levothyroxine Sodium 75 mcg QAM@0600 PO 08/19/25 09:19 08/20/25 06:12 75 MCG Gabapentin 600 mg TID PO 08/19/25 14:00 Hold Lactated Ringer's 1,000 ml @ 100 mls/hr Q10H IV 08/19/25 08:30 08/20/25 04:11 100 MLS/HR Sodium Chloride 10 ml Q8HR IV 08/19/25 14:00 08/20/25 06:12 10 ML Acetaminophen 650 mg Q6HP PRN PO 08/19/25 08:30 Acetaminophen/ Hydrocodone Bitart 1 tab Q4HP PRN PO 08/19/25 08:30 08/20/25 08:09 1 TAB Ondansetron HCl 4 mg Q6HP PRN IV 08/19/25 08:30 08/19/25 17:54 4 MG Docusate Sodium 100 mg Q12HR PO 08/19/25 10:00 Nitroglycerin 0.4 mg Q5MINP PRN SL 08/19/25 08:30 Morphine Sulfate 2 mg Q30M PRN IV 08/19/25 08:30 Cefepime HCl 50 ml @ 12.5 mls/hr DAILY IV 08/20/25 10:00 08/20/25 08:40 12.5 MLS/HR Aspirin 81 mg BID PO 08/20/25 10:00 08/20/25 08:40 81 MG Diphenhydramine HCl 25 mg Q4HP PRN IV 08/19/25 10:45 Hydromorphone HCl 1 mg Q3HP PRN IV 08/19/25 12:15 08/20/25 10:41 1 MG Diagnostic Test (Pha) 1 strip ACHS 08/19/25 17:00 08/20/25 06:12 1 STRIP Insulin Human Regular ACHS SC 08/19/25 17:00 08/20/25 06:19 3 UNITS Dextrose 50 ml UD PRN IV 08/19/25 12:15 Paroxetine HCl 10 mg HS PO 08/19/25 22:00 08/19/25 21:56 10 MG Examination: GENERAL:Normal, HEENT:Normal, NECK:Normal, LUNGS:Normal, CVS:Normal, ABDOMEN:Normal, MSK:Normal, MSK:Abnormal (right knee dressing), SKIN:Normal, NEURO:Normal, :Normal laboratory and microbiology Laboratory Tests 08/20/25 05:20 Test 08/20/25 05:20 Range/Units Serum Glucose 186 H 74-106 mg/dL Problem List/Assessment/Plan Problem List/Assessment/Plan * Diabetes mellitus for which she will be placed on sliding scale insulin. * Hypertension for which her blood pressure will be monitored. * Hypothyroidism. Her TSH will be checked. * Hyperlipidemia. * Neuropathy. * Depression. * Status post surgery on the right knee for degenerative joint disease of the knee for which she will be placed on pain medications and receive physical therapy. Plan discussed with: Patient My Orders My Orders Orders - ALESIA MCDERMOTT MD Procedure Category Date Status Time Hydromorphone Hcl Inj PHA 08/19/25 In Process (Dilaudid Injectio 12:15 Glucose Blood PHA 08/19/25 In Process (Accu-Chek Comfort 17:00 Insulin R (Human) PHA 08/19/25 In Process (Insulin R) 17:00 Dextrose 50% Syringe PHA 08/19/25 In Process 12:15 Date of Service: Aug 20, 2025 Billing Provider: ALESIA MCDERMOTT MD Common Visit Codes: [id number] INP/OBS CARE(HIGH) ALESIA MCDERMOTT MD Aug 20, 2025 10:52
[2025-08-21] VITALS (8 sets, daily range): BP systolic 148–194; BP diastolic 74–100; PULSE 78–115; RESP 16–18; TEMP 97.3–99.3; O2SAT 94–97
[2025-08-21 06:17] LABS: Hematocrit 37.0 % (36.0-46.0); Hemoglobin 12.8 g/dL (12.2-16.2)
--- NOTE | 2025-08-21 08:20 | DVHPN2 ---
Progress Note Date Seen: Aug 21, 2025 Medical Necessity Reason Pt with a Central, PICC or Fol: No Subjective Patient reports: Feels worse (patient complaining of severe pain and concerned with the amount of assistance she is requiring) Objective vital signs Vital Sign Date Time Temp Pulse Resp B/P (MAP) Pulse Ox O2 Delivery O2 Flow Rate FiO2 08/21/25 07:06 96 18 168/92 08/21/25 05:00 98.2 95 98.2 08/20/25 20:00 Room Air* 0 21 Total Intake and Output 08/20/25 08/20/25 08/21/25 15:00 23:00 07:00 Intake Total 650 ml 850 ml Balance 650 ml 850 ml medications Current Medications Medications Dose Ordered Sig/Kaykay Route Start Time Stop Time Status Last Admin Dose Admin Gabapentin 600 mg QPM PO 08/19/25 18:00 Hold Levothyroxine Sodium 75 mcg QAM@0600 PO 08/19/25 09:19 08/21/25 06:34 75 MCG Gabapentin 600 mg TID PO 08/19/25 14:00 Hold Lactated Ringer's 1,000 ml @ 100 mls/hr Q10H IV 08/19/25 08:30 08/20/25 16:02 100 MLS/HR Sodium Chloride 10 ml Q8HR IV 08/19/25 14:00 08/21/25 06:34 10 ML Acetaminophen 650 mg Q6HP PRN PO 08/19/25 08:30 Acetaminophen/ Hydrocodone Bitart 1 tab Q4HP PRN PO 08/19/25 08:30 08/21/25 00:40 1 TAB Ondansetron HCl 4 mg Q6HP PRN IV 08/19/25 08:30 08/20/25 15:13 4 MG Docusate Sodium 100 mg Q12HR PO 08/19/25 10:00 Nitroglycerin 0.4 mg Q5MINP PRN SL 08/19/25 08:30 Morphine Sulfate 2 mg Q30M PRN IV 08/19/25 08:30 Aspirin 81 mg BID PO 08/20/25 10:00 08/20/25 22:06 81 MG Diphenhydramine HCl 25 mg Q4HP PRN IV 08/19/25 10:45 Hydromorphone HCl 1 mg Q3HP PRN IV 08/19/25 12:15 08/21/25 06:36 1 MG Diagnostic Test (Pha) 1 strip ACHS 08/19/25 17:00 08/21/25 06:36 1 STRIP Insulin Human Regular ACHS SC 08/19/25 17:00 08/21/25 06:36 4 UNITS Dextrose 50 ml UD PRN IV 08/19/25 12:15 Paroxetine HCl 10 mg HS PO 08/19/25 22:00 08/20/25 22:06 10 MG Cefepime HCl 50 ml @ 12.5 mls/hr BID IV 08/20/25 22:00 08/20/25 22:06 12.5 MLS/HR Examination: GENERAL:Normal, MSK:Abnormal laboratory and microbiology Laboratory Tests 08/21/25 05:42 08/20/25 05:20 Test 08/20/25 05:20 Range/Units Serum Glucose 186 H 74-106 mg/dL Problem List/Assessment/Plan Problem List/Assessment/Plan 69 year old female who is s/p right TKA POD 2 1. Pain control 2. DVT ppx 3. CPM as ordered 4. Physical therapy 5. prescriptions for pain, DVT ppx and abx ppx to be sent by [facility] ortho clinic [facility] to in house pharmacy as per patient request 6. aquacel to remain in place for 2 weeks 7. patient to follow up in 2 weeks at [facility] ortho clinic 8. clear for discharge from orthopedic standpoint, recommending SNF with the following recommendations: Total Knee Arthroplasty Discharge Instructions Wound Care 1. You will likely have a gel-type dressing over your wound, you may keep this on for 7-14 days after leaving the hospital until your first post-op visit, unless it becomes soiled or your skin becomes irritated. If a wound vac dressing is placed on your knee this is to be left in place for one week and will be changed as needed. After your remove the dressing or wound vac, the home health nurse may place clean dry dressing over your wound. Keep wound covered, clean and dry for two weeks. 2. [place] will be removed during your initial post-op visit. If you have concerns about our wound, please call the office immediately. If nervous about staple removal can take pain pill one hour prior to appointment. 3. If there is drainage from your wound, change the dressing daily until it stops. If drainage lasts more than 10 days, call our office. 4. Low grade (up to 100 degrees) fever is common for the first week after surgery. You should take your temperature daily. If you have fevers of 101 or more, please call the office. Medication Management 1. You will be discharged with pain medication, a blood thinner (unless you were previously on a blood thinner prior to surgery) and stool softener. Please follow the instructions regarding these medications as provided by your nurse at the hospital upon discharge. 2. Blood clots in the leg are a known complication of surgery. It is very important that you take the medication to protect against clots. Depending on what you are discharged on typically it is Lovenox 40mg daily for 2 weeks or Aspirin 81mg twice daily for 4 weeks. After you finish this, you should then take baby Aspirin (81mg) once daily for 2 weeks. 3. You should restart all of your prescription medications once discharged from the hospital/surgery center unless specifically instructed otherwise. 4. Herbal supplements may be restarted 2 weeks after surgery. 5. If you have been given Coumadin as a blood thinner, please follow up with your director of guidance during the first two weeks after surgery to review medications and overall medical well-being. 6. Please note that narcotic pain medication may cause constipation. Please remember to take stool softeners (Colace) when using narcotics to help reduce the change of constipation. You should not use alcohol together with narcotic medication. Activity 1. CPM as ordered, goal is for 6 hours every day for the first 21 days of your recovery. Can break it up in to increments of 2-3 hours at a time. Most hospitals will start at 45 degrees of flexion, and increase by 5 degrees daily until the machine has been maxed out. The goal is to be at 90 degrees by first postop visit in 2 weeks. 2. No pool, jacuzzi, beach, rodgers or bath for 6 weeks. Once all scabbing has fallen off patient can begin soaking and submerging knee under water for 15- minute periods at a time. 3. Physical therapy is critical in the first 2 weeks. If having issues with scheduling please inform office. 4. No running or jumping for 6 weeks. 5. Can walk and bear as much weight on the surgical leg as tolerated. No restrictions in regards to walking or standing. [facility] Instructions 1. Driving is not permitted within the first 2 weeks. 2. Your first postoperative visit will take place 2 weeks after discharge. Please call the office once you are home from the hospital to arrange this appointment. 3. Antibiotic preventative treatment is required before dental or other invasive procedures. Please ask your surgeon about this at your first postoperative visit. If you experience chest pain, shortness of breath or severe painful calf swelling, go to the nearest emergency room to be evaluated. Please call our office once your situation is stabilized. Plan discussed with: Patient Date of Service: Aug 21, 2025 Billing Provider: EVANGELINA HARRISON MD Common Visit Codes: NOT BILLABLE LUDWIG ASHER NP Aug 21, 2025 08:20
--- NOTE | 2025-08-21 11:22 | DVHPN2 ---
Progress Note Date Seen: Aug 21, 2025 Medical Necessity Reason Pt with a Central, PICC or Fol: No Subjective Patient reports: No new complaints Review of Systems: HEENT:Normal, CVS:Normal, RESPIRATORY:Normal, GI:Normal, :Normal, MSK:Normal, NEURO:Normal Objective vital signs Vital Sign Date Time Temp Pulse Resp B/P (MAP) Pulse Ox O2 Delivery O2 Flow Rate FiO2 08/21/25 10:21 96 14 178/100 08/21/25 09:00 97.9 95 97.9 08/20/25 20:00 Room Air* 0 21 Total Intake and Output 08/20/25 08/20/25 08/21/25 15:00 23:00 07:00 Intake Total 650 ml 850 ml Balance 650 ml 850 ml medications Current Medications Medications Dose Ordered Sig/Kaykay Route Start Time Stop Time Status Last Admin Dose Admin Gabapentin 600 mg QPM PO 08/19/25 18:00 Hold Levothyroxine Sodium 75 mcg QAM@0600 PO 08/19/25 09:19 08/21/25 06:34 75 MCG Gabapentin 600 mg TID PO 08/19/25 14:00 Hold Lactated Ringer's 1,000 ml @ 100 mls/hr Q10H IV 08/19/25 08:30 08/21/25 09:21 100 MLS/HR Sodium Chloride 10 ml Q8HR IV 08/19/25 14:00 08/21/25 06:34 10 ML Acetaminophen 650 mg Q6HP PRN PO 08/19/25 08:30 Acetaminophen/ Hydrocodone Bitart 1 tab Q4HP PRN PO 08/19/25 08:30 08/21/25 00:40 1 TAB Ondansetron HCl 4 mg Q6HP PRN IV 08/19/25 08:30 08/20/25 15:13 4 MG Docusate Sodium 100 mg Q12HR PO 08/19/25 10:00 Nitroglycerin 0.4 mg Q5MINP PRN SL 08/19/25 08:30 Morphine Sulfate 2 mg Q30M PRN IV 08/19/25 08:30 Aspirin 81 mg BID PO 08/20/25 10:00 08/21/25 09:13 81 MG Diphenhydramine HCl 25 mg Q4HP PRN IV 08/19/25 10:45 Hydromorphone HCl 1 mg Q3HP PRN IV 08/19/25 12:15 08/21/25 10:21 1 MG Diagnostic Test (Pha) 1 strip ACHS 08/19/25 17:00 08/21/25 11:18 1 STRIP Insulin Human Regular ACHS SC 08/19/25 17:00 08/21/25 11:21 6 UNITS Dextrose 50 ml UD PRN IV 08/19/25 12:15 Paroxetine HCl 10 mg HS PO 08/19/25 22:00 08/20/25 22:06 10 MG Cefepime HCl 50 ml @ 12.5 mls/hr BID IV 08/20/25 22:00 08/21/25 09:11 12.5 MLS/HR Examination: GENERAL:Normal, HEENT:Normal, NECK:Normal, LUNGS:Normal, CVS:Normal, ABDOMEN:Normal, MSK:Normal, SKIN:Normal, NEURO:Normal, :Normal laboratory and microbiology Laboratory Tests 08/21/25 05:42 08/20/25 05:20 Test 08/20/25 05:20 Range/Units Serum Glucose 186 H 74-106 mg/dL Problem List/Assessment/Plan Problem List/Assessment/Plan * Diabetes mellitus for which she will be placed on sliding scale insulin. * Hypertension for which her blood pressure will be monitored, lisinopril * Hypothyroidism. Her TSH will be checked. * Hyperlipidemia. * Neuropathy. * Depression. * Status post surgery on the right knee for degenerative joint disease of the knee for which she will be placed on pain medications and receive physical therapy. Plan discussed with: Patient Date of Service: Aug 21, 2025 Billing Provider: ALESIA MCDERMOTT MD Common Visit Codes: [id number] INP/OBS CARE(HIGH) ALESIA MCDERMOTT MD Aug 21, 2025 11:22
[2025-08-21] MEDS: LISINOPRIL 5 MG TAB PO ONE (11:47)
[2025-08-21] MEDS: GABAPENTIN 300 MG CAP PO SCH (15:40)
[2025-08-22 05:00] VITALS: BP 150/88; PULSE 101; RESP 18; TEMP 99; O2SAT 95
[2025-08-22 06:04] LABS: Hematocrit 34.6 % (36.0-46.0); Hemoglobin 11.9 g/dL (12.2-16.2)
[2025-08-22 08:00] VITALS: PULSE 89; RESP 14; O2SAT 96
[2025-08-22 09:00] VITALS: BP 152/87; PULSE 100; RESP 16; TEMP 98.2; O2SAT 95
[2025-08-22] MEDS: LISINOPRIL 5 MG TAB PO SCH (10:00)
--- NOTE | 2025-08-22 11:04 | DVHDS2 ---
Discharge Summary Date of Admission Aug 19, 2025 at 08:21 Date of Discharge: Aug 22, 2025 Labs/Diagnostic Data: Laboratory Results Test 08/22/25 06:25 08/22/25 05:43 08/20/25 05:20 08/15/25 12:40 POC Glucose 236 mg/dl (70-106) Hemoglobin 11.9 g/dL (12.2-16.2) Hematocrit 34.6 % (36.0-46.0) White Blood Count 10.1 10^3/uL (4.4-10.8) Red Blood Count 3.53 10^6/uL (4.0-5.20) Mean Corpuscular Volume 88.6 fL (80.0-100.0) Mean Corpuscular Hemoglobin 29.9 pg (28.0-32.0) Mean Corpuscular Hemoglobin Concent 33.8 g/dL (32.0-36.0) Red Cell Distribution Width 12.7 % (11.8-14.3) Platelet Count 181 10^3/uL (140-450) Mean Platelet Volume 9.1 fL (6.9-10.8) Neutrophils (%) (Auto) 78.2 % (37.0-80.0) Lymphocytes (%) (Auto) 12.6 % (10.0-50.0) Monocytes (%) (Auto) 9.1 % (0.0-12.0) Eosinophils (%) (Auto) 0.0 % (0.0-7.0) Basophils (%) (Auto) 0.1 % (0.0-2.0) Neutrophils # (Auto) 7.9 10 ^3/uL (1.6-8.6) Lymphocytes # (Auto) 1.3 10 ^3/uL (0.4-5.4) Monocytes # (Auto) 0.9 10 ^3/uL (0-1.3) Eosinophils # (Auto) 0 10 ^3/uL (0-0.8) Basophils # (Auto) 0 10 ^3/uL (0-0.2) Nucleated Red Blood Cells 0.1 % Sodium Level 141 mmol/L (136-145) Potassium Level 4.2 mmol/L (3.5-5.1) Chloride Level 104 mmol/L (98-107) Carbon Dioxide Level 27 mmol/L (20-31) Anion Gap 10 (5-15) Blood Urea Nitrogen 23 mg/dL (9-23) Creatinine 0.80 mg/dL (0.550-1.02) Glomerular Filtration Rate Calc 79 mL/min (>90) BUN/Creatinine Ratio 28.8 (10.0-20.0) Serum Glucose 186 mg/dL (74-106) Hemoglobin A1c 7.3 % A1C (<5.7) Calcium Level 8.8 mg/dL (8.7-10.4) Total Bilirubin 0.5 mg/dL (0.2-1.0) Aspartate Amino Transferase (AST) 24 U/L (13-40) Alanine Aminotransferase (ALT) 20 U/L (7-40) Alkaline Phosphatase 62 U/L (46-116) Total Protein 5.8 g/dL (5.7-8.2) Albumin 3.6 g/dL (3.2-4.8) Thyroid Stimulating Hormone (TSH) 0.23 uIU/mL (0.55-4.78) Prothrombin Time 10.8 sec (9.3-11.8) Prothrombin Time INR 1.02 (0.9-1.15) Activated Partial Thromboplast Time 26.8 SEC (24.5-34.5) Urine Color Light-yellow (Yellow) Urine Clarity Clear (Clear) Urine pH 5.0 (5.0-9.0) Urine Specific [place] 1.013 (1.001-1.035) Urine Protein Negative (Negative) Urine Ketones Negative (Negative) Urine Blood Negative /uL (Negative) Urine Nitrite Negative (Negative) Urine Bilirubin Negative (Negative) Urine Urobilinogen Normal mg/dL (Negative) Urine Leukocyte Esterase 1+ /uL (Negative) Urine RBC 3 /hpf (0 - 4) Urine Microscopic WBC 4 /HPF (0-5) Urine Squamous Epithelial Cells Few /hpf (<5) Urine Bacteria None seen /hpf (None Seen) Urine Glucose Normal mg/dL (Normal) Other Laboratory Tests 08/22/25 05:43 08/20/25 05:20 Brief Hx & Hospital Course: see dictated note Condition at Discharge: Fair Final Diagnosis/Problems List knee surgery Discharge Disposition: [facility] Facility Discharge Instruct/Medications Diet: Consistent carbohydrate, Cardiac 2g Na,low cholest Activity: No Restrictions, As Tolerated Follow Up/Referral: fu with pcp/ortho Medications: per mar Scheduled Fenofibrate (Fenofibrate), 145 MG OR DAILY, (Reported) Gabapentin (Gabapentin), 2 TAB PO QPM, (Reported) Gabapentin (Gabapentin), 600 MG PO TID, (Reported) Glipizide (Glipizide), 10 MG PO BID, (Reported) Insulin Glargine (Lantus), 24 UNIT SC HS, (Reported) Levothyroxine Sodium (Levothyroxine Sodium), 75 MCG PO QAM, (Reported) Lisinopril (Lisinopril), 10 MG PO BID, (Reported) Meloxicam (Meloxicam), 15 MG PO DAILY, (Reported) Metformin Hydrochloride (Metformin Hcl), 1 TAB PO BID, (Reported) Paroxetine Hydrochloride (Paroxetine Hydrochloride), 10 MG PO HS, (Reported) Tramadol HCl (Tramadol HCl), 50 MG PO BID, (Reported) Discontinued Medications Gabapentin (Gabapentin), 1 TAB PO QAM, (Reported) Discontinued Reason: Prescription changed Naproxen Sodium (Aleve), 220 MG PO BID, (Reported) Discontinued Reason: Prescription changed Omeprazole (Gnp Omeprazole), 1 TAB PO DAILY, (Reported) Discontinued Reason: Prescription changed Secukinumab (Cosentyx), 150 MG SC MONTHLY, (Reported) Discontinued Reason: Prescription changed Discharge Statement: "Patient was advised to return to the ER or call 911 if any headaches, dizziness, shortness of breath, chest pain, abdominal pain, bleeding, fevers, or worsening of medical condition. Patient was counseled about treatment plan, medications, possible side effects, patientverbalized understanding. All questions were answered to the best of my ability. This discharge took greater then 30 minutes in planning, reviewing documentation, counseling the patient, and discussing with other team members." ASSESSMENT ASSESSMENT Assessment knee surgery Date of Service: Aug 22, 2025 Billing Provider: ALESIA MCDERMOTT MD Common Visit Codes: [id number] DISCH DAY >30min ALESIA MCDERMOTT MD Aug 22, 2025 11:04
[2025-08-22] MEDS: glipiZIDE 5 MG TAB PO ONE (11:15)
--- NOTE | 2025-08-22 11:27 | DVHDS ---
DATE OF DISCHARGE: 08/22/2025 DATE OF TRANSFER TO SNF: 08/22/2025 HISTORY OF PRESENT ILLNESS: The patient is a 69-year-old lady who was admitted after she underwent surgery on the right knee for DJD of the knee. She has a history of diabetes, hypertension, hypothyroidism, depression, hyperlipidemia and neuropathy. HOSPITAL COURSE: The patient did well postoperatively. The patient has been ambulating with physical therapy. Her hemoglobin A1c was 7.3. She will now be transferred to a care home facility for further management. FINAL DIAGNOSES: Therefore: * Diabetes mellitus. * Hypertension. * Hypothyroidism. * Hyperlipidemia. * Neuropathy. * Depression. * Status post surgery on the right knee for DJD of the knee. Time spent in discharge planning and review of plan with the patient, nursing and social organization professor was 39 minutes. MD RAMESH Senior/ANH TID: [id number] RECEIPT: [id number]
[2025-08-22 13:00] VITALS: BP 114/79; PULSE 98; RESP 18; TEMP 97.9; O2SAT 96
[2025-08-22 16:59] VITALS: BP 164/93; PULSE 89; RESP 19; TEMP 98.2; O2SAT 94
[2025-08-22] MEDS: ACETAMINOPHEN 325 MG TAB PO PRN (17:44)
[2025-08-22 18:44] VITALS: TEMP 97.5
[2025-08-23] MEDS ORDERED: glipiZIDE 5 MG TAB PO SCH (07:00)
== END 2025-08-22 19:20 | DRG 470 ==
LOC: SUR 07:28 → OVERFLOW 08:21 → TELE-EAST 17:42 → EAST 08-21 13:21
PROVIDERS: ADMIT Internal Medicine; ATTEND Internal Medicine
PROC: 8E0YXBZ Computer Assisted Procedure of Lower Extremity (ICD-10-PCS; 2025-08-19)
PROC: F08L5AZ Wound Management Treatment of Musculoskeletal System - Lower Back / Lower Extremity using Negative Pressure Therapy (ICD-10-PCS; 2025-08-19)
PROC: 0SRC0JZ Replacement of Right Knee Joint with Synthetic Substitute, Open Approach (ICD-10-PCS; principal; 2025-08-19 09:15)
DX: M17.11 Unilateral primary osteoarthritis, right knee (principal); F32.A Depression, unspecified; E11.40 Type 2 diabetes mellitus with diabetic neuropathy, unspecified; E78.5 Hyperlipidemia, unspecified; I10 Essential (primary) hypertension; E03.9 Hypothyroidism, unspecified
CPT/HCPCS: 36415; 73562; 80053; 81001; 82962; 83036; 84443; 85014; 85018; 85025; 85610; 85730; 86850; 86900; 86901; 97110; 97116; 97163; 97530; G0378; J0131; J1100; J1815; J1885; J2250; J2405; J2704; J3490